=== PATIENT | female | born 1995 | race Caucasian/White ===

== ENCOUNTER 2023-07-22 21:17 | Inpatient (IN) | payer BC ==
[2023-07-22] MEDS ORDERED: Ondansetron PF 4 MG/2 ML Vial IVP PRN (21:24)
[2023-07-22] MEDS ORDERED: fentaNYL 50 mcg/mL 1 mL Vial SLOW IVP PRN (21:24)
[2023-07-22] MEDS ORDERED: HYDROcodone/Acetaminophen 5/325 mg Tablet PO PRN ×2 (21:24)
[2023-07-22] MEDS ORDERED: hydrALAZINE 20 MG/ML VIAL SLOW IVP PRN (21:24)
[2023-07-22] MEDS ORDERED: Oxytocin 30 units/NS 500 ML 500 ML IV SCH ×2 (21:24)
[2023-07-22] MEDS ORDERED: Promethazine HCl 25 MG/ML VIAL IM PRN (21:24)
[2023-07-22] MEDS ORDERED: Lidocaine 1% (PF) 30 ML VIAL SC PRN (21:24)
[2023-07-22 21:57] VITALS: BMI 24.3
[2023-07-22 22:15] LABS: Hematocrit 30.2 % (34.9-44.5); Hemoglobin 10.5 g/dL (12.0-15.5); Mean Corpuscular HGB CONC 34.8 g/dL (32.0-36.0); Mean Corpuscular Hemoglobin 29.2 pg (27.0-33.0); Mean Corpuscular Volume 83.9 fl (81.6-98.3); Mean Platelet Volume 10.3 fl (7.4-10.4); Platelet Count 177 10x3/uL (150-450); RBC Distribution Width 13.2 % (11.5-14.5); White Blood Cell (WBC) Count 8.9 10x3/uL (3.5-10.5)
[2023-07-22] MEDS: Misoprostol 100 MCG TAB VAG SCH (22:30)
[2023-07-22 22:44] LABS: Syphilis Antibody Nonreactive (Nonreactive); Syphilis Antibody Index 0.08 S/CO (<1.00 Non-Reactive)
[2023-07-22 22:45] LABS: HBSAg Index 0.28 S/CO (0-0.99); Hep B Surf Ag - L&D Non-Reactive S/CO (NonReactive)
[2023-07-23] MEDS: Misoprostol 100 MCG TAB VAG SCH
[2023-07-23] MEDS: Lactated Ringer's 1,000 ML IV SCH (03:20)
[2023-07-23] MEDS: fentaNYL/Ropivacaine Epidural 100 ML ONE (03:40)
[2023-07-23] MEDS ORDERED: Naloxone HCl 0.4 mg/ml Vial IVP PRN ×2 (05:11)
[2023-07-23] MEDS ORDERED: Lactated Ringer's 500 ML IV PRN (05:11)
[2023-07-23] MEDS ORDERED: diphenhydrAMINE 50 MG/ML VIAL IVP PRN (05:11)
[2023-07-23] MEDS ORDERED: Ondansetron PF 4 MG/2 ML Vial IVP PRN ×2 (05:11→13:17)
[2023-07-23] MEDS ORDERED: ePHEDrine Sulfate 50 MG/10 ML VIAL SLOW IVP PRN (05:11)
[2023-07-23] MEDS ORDERED: Moisturizing Cream (Eucerin) 113 GM JAR TOP PRN (05:11)
[2023-07-23] MEDS ORDERED: Promethazine HCl 25 MG/ML VIAL IM PRN (05:11)
[2023-07-23] MEDS ORDERED: Acetaminophen 325 MG TAB PO PRN (05:11)
[2023-07-23] MEDS ORDERED: fentaNYL 2 mcg/Ropivacaine 0.2% Epidural 100 ML CADD EPIDURAL SCH (05:15)
[2023-07-23] MEDS ORDERED: Communication Order-Pharmacy FS SCH (05:15)
[2023-07-23] MEDS: Oxytocin 30 units/NS 500 ML 500 ML IV SCH (08:14)
[2023-07-23] MEDS: Ibuprofen 800 MG TAB PO PRN (13:15)
[2023-07-23] MEDS ORDERED: Oxytocin 30 units/NS 500 ML 500 ML IV SCH (13:17)
[2023-07-23] MEDS ORDERED: hydrALAZINE 20 MG/ML VIAL SLOW IVP PRN (13:17)
[2023-07-23] MEDS ORDERED: Lanolin Ointment 7 GM TUBE TOP PRN (13:17)
[2023-07-23] MEDS ORDERED: Milk Of Magnesia 30 ML UDCUP PO PRN (13:17)
[2023-07-23] MEDS ORDERED: diphenhydrAMINE 25 MG CAP PO PRN (13:17)
[2023-07-23] MEDS ORDERED: Benzocaine-Menthol 82.5 ML CAN TOP PRN (13:17)
[2023-07-23] MEDS ORDERED: Bisacodyl 10 MG SUPP PR PRN (13:17)
[2023-07-23] MEDS ORDERED: HYDROcodone/Acetaminophen 5/325 mg Tablet PO PRN ×2 (13:17)
[2023-07-23] MEDS ORDERED: Preparation H Ointment 28 GM TUBE PR PRN (13:17)
[2023-07-23] MEDS: Ferrous Sulfate 325 MG TAB PO SCH (15:55)
[2023-07-23] MEDS: Ibuprofen 800 MG TAB PO SCH (15:55)
[2023-07-23] MEDS ORDERED: Bupivacaine 0.25% HCL 30 ML VIAL ONE (16:38)
[2023-07-23] MEDS: Docusate 100 MG CAP PO SCH (21:36)
[2023-07-24] MEDS: Prenatal Vitamin 1 TAB PO SCH (08:07)
[2023-07-25] MEDS: Boostrix 0.5 ML (Tdap) VIAL (>/=7 yrs of age) IM ONE (07:09)
[2023-07-25 07:28] VITALS: BP 102/58; TEMP 98.1
== END 2023-07-25 09:40 | disposition home or self-care (01) | DRG 807 ==
LOC: CSHLD 21:17 → CSHPP 07-23 14:17
PROVIDERS: ADMIT Obstetrics & Gynecology; ATTEND Obstetrics & Gynecology
PROC: 10D07Z6 Extraction of Products of Conception, Vacuum, Via Natural or Artificial Opening (ICD-10-PCS; principal; 2023-07-23)
PROC: 0KQM0ZZ Repair Perineum Muscle, Open Approach (ICD-10-PCS; 2023-07-23)
PROC: 3E0DXGC Introduction of Other Therapeutic Substance into Mouth and Pharynx, External Approach (ICD-10-PCS; 2023-07-23)
PROC: 10907ZC Drainage of Amniotic Fluid, Therapeutic from Products of Conception, Via Natural or Artificial Opening (ICD-10-PCS; 2023-07-23)
DX: O76 Abnormality in fetal heart rate and rhythm complicating labor and delivery (principal); Z37.0 Single live birth; Z3A.39 39 weeks gestation of pregnancy; O70.1 Second degree perineal laceration during delivery
CPT/HCPCS: 36415; 51702; 85027; 86780; 86850; 86900; 86901; 87340; J0665; J2590; J7120